=== PATIENT | female | born 1985 | race African-American/Black ===

== ENCOUNTER 2019-02-24 22:55 | Emergency (ER) | payer OTHER ==
[~2019-02-24] VITALS: Ht 165.1 cm; Wt 122.5 kg
[2019-02-24 23:30] LABS: BILIRUBIN,URINE NEGATIVE (NEG); CLARITY,URINE CLEAR; COLOR,URINE YELLOW; NITRITE,URINE NEGATIVE (NEG); PH,URINE 7.5; PROTEIN,URINE NEGATIVE (NEG-TRACE)
--- NOTE | 2019-02-24 23:34 | PHYS DOC ---
Adult General Chief Complaint Chief Complaint: ABDOMINAL PAIN IN HPI HPI Patient is a 33 year old -Polish, G3, P1, Ab 1 mated 9 weeks' gestation female who presents with right lower quadrant pain/tenderness starting earlier today. Patient is intermittent lasting 10-15 minutes a time with multiple episodes throughout the day. Patient is worse with palpation and movement and is not relieved with rest or position change. No medications or therapy sticking prior to ED arrival. Patient denies dizziness lightheadedness, chest pain palpitations, flank pain, urinary frequency urgency burning, vaginal bleeding and discharge. No fever chills sweats, nausea vomiting or diarrhea. No vomiting or diarrhea. States she had similar pain during most isn't due to uterine fibroids. Patient has yet to establish with an FIRE BATTALION CHIEF.[] Review of Systems Review of Systems View symptoms as per history of present illness. All other review symptoms are negative All other systems were reviewed and found to be within normal limits, except as documented in this note. Current Medications Current Medications Current Medications Medications (Trade) Dose Ordered Sig/Kishan Start Time Stop Time Status Last Admin Dose Admin Metronidazole (Flagyl) 500 mg 1X ONCE 02/25/19 01:30 02/25/19 01:31 Allergies Allergies Allergies Coded Allergies Type Severity Reaction Last Updated Verified No Known Drug Allergies 02/24/19 No Physical Exam Physical Exam Constitutional: Well developed, well nourished, no acute distress, non-toxic appearance. [] HENT: Normocephalic, atraumatic, bilateral external ears normal, oropharynx moist, nose normal. [] Eyes: PERRLA, EOMI, conjunctiva normal. [] Neck: Normal range of motion, no tenderness. [] Cardiovascular:Heart rate regular rhythm, no murmur [] Lungs & Thorax: Bilateral breath sounds clear to auscultation [] Abdomen: Bowel sounds normal, soft, no tenderness, no masses, no pulsatile masses. [] Pelvic: Pelvic exam declined by patient. [] Back: No tenderness, no CVA tenderness. [] Extremities: No tenderness, no cyanosis, no edema. [] Neurologic: Alert and oriented X 3, normal motor function, normal sensory function, no focal deficits noted. [] Psychologic: Affect normal, judgement normal, mood normal. [] Current Patient Data Vital Signs Vital Signs Date Time Temp Pulse Resp B/P (MAP) Pulse Ox O2 Delivery O2 Flow Rate FiO2 02/24/19 23:13 97.9 89 16 153/88 (109) 97 Room Air 97.9 Lab Values Laboratory Tests Test 02/24/19 23:00 02/24/19 23:23 02/24/19 23:35 Urine Color Yellow Urine Clarity Clear Urine pH 7.5 Urine Specific [place] 1.025 Urine Protein Negative mg/dL (NEG-TRACE) Urine Glucose (UA) Negative mg/dL (NEG) Urine Ketones (Stick) Negative mg/dL (NEG) Urine Blood Negative (NEG) Urine Nitrite Negative (NEG) Urine Bilirubin Negative (NEG) Urine Urobilinogen Dipstick 1.0 mg/dL (0.2 mg/dL) Urine Leukocyte Esterase Negative (NEG) Urine RBC 0 /HPF (0-2) Urine WBC Occ /HPF (0-4) Urine Squamous Epithelial Cells Occ /LPF Urine Bacteria 0 /HPF (0-FEW) Urine Mucus Mod /LPF POC Urine HCG, Qualitative Hcg positive (Negative) White Blood Count 7.3 x10^3/uL (4.0-11.0) Red Blood Count 4.09 x10^6/uL (3.50-5.40) Hemoglobin 11.1 g/dL (12.0-15.5) L Hematocrit 33.9 % (36.0-47.0) L Mean Corpuscular Volume 83 fL (79-100) Mean Corpuscular Hemoglobin 27 pg (25-35) Mean Corpuscular Hemoglobin Concent 33 g/dL (31-37) Red Cell Distribution Width 16.3 % (11.5-14.5) H Platelet Count 266 x10^3/uL (140-400) Neutrophils (%) (Auto) 63 % (31-73) Lymphocytes (%) (Auto) 29 % (24-48) Monocytes (%) (Auto) 6 % (0-9) Eosinophils (%) (Auto) 2 % (0-3) Basophils (%) (Auto) 0 % (0-3) Neutrophils # (Auto) 4.6 x10^3/uL (1.8-7.7) Lymphocytes # (Auto) 2.1 x10^3/uL (1.0-4.8) Monocytes # (Auto) 0.4 x10^3/uL (0.0-1.1) Eosinophils # (Auto) 0.1 x10^3/uL (0.0-0.7) Basophils # (Auto) 0.0 x10^3/uL (0.0-0.2) Maternal Serum HCG Beta Subunit 63106 mIU/mL (0-5) H Sodium Level 138 mmol/L (136-145) Potassium Level 3.9 mmol/L (3.5-5.1) Chloride Level 103 mmol/L (98-107) Carbon Dioxide Level 29 mmol/L (21-32) Anion Gap 6 (6-14) Blood Urea Nitrogen 9 mg/dL (7-20) Creatinine 0.8 mg/dL (0.6-1.0) Estimated GFR (Cockcroft-Gault) 100.0 Glucose Level 107 mg/dL (70-99) H Calcium Level 9.2 mg/dL (8.5-10.1) Laboratory Tests 02/24/19 23:35 Laboratory Tests 02/24/19 23:35 Microbiology 02/24/19 Wet Prep - Final, Complete EKG EKG [] Radiology/Procedures Radiology/Procedures [OB ultrasound: Viable 6 week 1 day IUP. Large uterine fibroids visualized. Appendix and ovaries are not seen.] Course & Med Decision Making Course & Med Decision Making Pertinent Labs and Imaging studies reviewed. (See chart for details) [Acute right-sided pelvic pain in early with viable IUP. Patient declines pelvic exam agrees to self swab. Bacterial vaginosis +. Concern for lorri n secondary to possible appendicitis versus bacterial vaginosis versus uterine fibroids vs ovarain torsion. 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 Patient declines admission. MRI unavailable in the ED. Patient does not want CT due radiation exposure. She states she has had similar pain during the most recent and prefers to follow-up her FIRE BATTALION CHIEF on Wednesday as scheduled. Patient verbalizes understanding that she is risk of miscarriage surgical emergency for untreated appendicitis. She agrees to return to the emergency department should she change her mind regarding additional testing and hospital admission. Patient discharged to home at her request. ] Dragon Disclaimer Dragon Disclaimer This electronic medical record was generated, in whole or in part, using a voice recognition dictation system. Departure Departure Impression: Primary Impression: Pelvic pain affecting in first trimester, antepartum Additional Impression: Bacterial vaginosis in Disposition: HOME, SELF-CARE Condition: GUARDED Referrals: NO PCP (PCP) Patient Instructions: Abdominal Pain During , [id number], Bacterial Vaginosis, [id number] Additional Instructions: You were evaluated in the emergency department for lower pelvic pain. Lab and imaging studies were performed. A viable uterine 6 weeks, 1 day is present on ultrasound. Large uterine fibroids were also noted to be present. Genital swabs feel bacterial vaginosis and overgrowth of normal bacteria. The appendix was not clearly visualized and has not been ruled out. Undiagnosed appendicitis places you at high risk for miscarriage and potential surgical emergencies. If you change your mind regarding further evaluation of appendicitis, return to the ED. Otherwise, take newly prescribed medication follow-up with your OB on Wednesday as scheduled. Take Flagyl as directed for treatment of bacterila and Tylenol for pain Scripts Metronidazole (FLAGYL) 250 Mg Tablet 1 TAB PO BID, #14 TAB Prov: MAGED GARCIA DO 02/25/19 Problem Qualifiers MAGED GARCIA DO Feb 24, 2019 23:34
[2019-02-24 23:36] LABS: BACTERIA,URINE 0 /HPF (0-FEW); RBC,URINE 0 /HPF (0-2); SQUAMOUS EPITHELIAL CELL,UR OCC /LPF; WBC,URINE OCC /HPF (0-4)
[2019-02-24 23:47] LABS: BASO % 0 % (0-3); EOS # 0.1 x10^3/uL (0.0-0.7); EOS % 2 % (0-3); HEMATOCRIT 33.9 % (36.0-47.0); HEMOGLOBIN 11.1 g/dL (12.0-15.5); LYMPH # 2.1 x10^3/uL (1.0-4.8); LYMPH % 29 % (24-48); MEAN CORPUSCULAR HEMOGLOBIN 27 pg (25-35); MEAN CORPUSCULAR HGB CONC 33 g/dL (31-37); MEAN CORPUSCULAR VOLUME 83 fL (79-100); MONO # 0.4 x10^3/uL (0.0-1.1); MONO % 6 % (0-9); NEUT # 4.6 x10^3/uL (1.8-7.7); NEUT % 63 % (31-73); PLATELET COUNT 266 x10^3/uL (140-400); RED BLOOD COUNT 4.09 x10^6/uL (3.50-5.40); RED CELL DISTRIBUTION WIDTH 16.3 % (11.5-14.5); WHITE BLOOD COUNT 7.3 x10^3/uL (4.0-11.0)
[2019-02-25 00:01] LABS: CALCIUM 9.2 mg/dL (8.5-10.1); CREATININE 0.8 mg/dL (0.6-1.0); POTASSIUM 3.9 mmol/L (3.5-5.1)
--- NOTE | 2019-02-25 01:01 | RAD ---
CLINICAL HISTORY: Right-sided pelvic pain COMPARISON: None available. TECHNIQUE: transabdominal and endovaginal sonography was performed FINDINGS: An intrauterine gestational sac is present. An embryo is identified .Cardiac activity is visualized and documented at a rate of 115 beats per minute. There is no subchorionic fluid collection. Based on a crown rump length averaging 0.44 cm, the estimated gestational age is 6 weeks, 1 days. Estimated date of delivery is 10/20/2019. Ovaries are not visualized. Numerous fibroids are seen within the uterus resulting in deformity of the uterus and limiting evaluation. There is small volume pelvic free fluid. Limited imaging of the right lower quadrant was performed. The appendix was not visualized. IMPRESSION: 1. Single live intrauterine gestation with mean sonographic age of 6 weeks, 1 days. The estimated date of delivery is 10/20/2019. 2. Ovaries are not seen. Uterine fibroids are noted. Electronically signed by: Mukul Parra MD (02/25/2019 12:58 AM) [facility]
[2019-02-25] MEDS ORDERED: METR250T PO (01:13)
[2019-02-25 01:25] VITALS: BP 142/65
[2019-02-25] MEDS ORDERED: metroNIDAZOLE 500 MG TABLET PO ONE (01:30)
[2019-02-25] MEDS ORDERED: ACETAMINOPHEN 325 MG TABLET. PO ONE (01:45)
[2019-02-28 23:08] LABS: GC PROBE Negative (Negative)
== END 2019-02-25 01:29 | disposition home or self-care (01) ==
LOC: ER 22:55
DX: O23.591 Infection of other part of genital tract in pregnancy, first trimester (principal); B96.89 Other specified bacterial agents as the cause of diseases classified elsewhere; Z3A.01 Less than 8 weeks gestation of pregnancy
CPT/HCPCS: 36415; 76801; 76817; 80048; 81001; 81025; 84702; 85025; 86900; 86901; 87491; 87591; 99285; Q0111

== ENCOUNTER 2020-08-07 20:24 | Emergency (ER) | payer OTHER ==
[~2020-08-07] VITALS: Ht 165.1 cm; Wt 126.4 kg
[~2020-08-07 20:24] MED LIST: METR250T PO; ONDA4TAB12 PO
[2020-08-07 20:53] LABS: BILIRUBIN,URINE NEGATIVE (NEG); CLARITY,URINE CLEAR; COLOR,URINE YELLOW; NITRITE,URINE NEGATIVE (NEG); PH,URINE 6.5 (<5.0-8.0); PROTEIN,URINE 30 mg/dL (NEG-TRACE)
[2020-08-07 21:02] LABS: BACTERIA,URINE MODERATE /HPF (0-FEW)
[2020-08-07 21:03] LABS: WBC,URINE RARE /HPF (0-4)
[2020-08-07 22:15] LABS: BASO % 0 % (0-3); EOS # 0.3 x10^3/uL (0.0-0.7); EOS % 4 % (0-3); HEMATOCRIT 33.2 % (36.0-47.0); LYMPH # 2.4 x10^3/uL (1.0-4.8); LYMPH % 30 % (24-48); MEAN CORPUSCULAR HEMOGLOBIN 28 pg (25-35); MEAN CORPUSCULAR HGB CONC 33 g/dL (31-37); MEAN CORPUSCULAR VOLUME 84 fL (79-100); MONO # 0.5 x10^3/uL (0.0-1.1); MONO % 6 % (0-9); NEUT # 4.7 x10^3/uL (1.8-7.7); NEUT % 60 % (31-73); PLATELET COUNT 350 x10^3/uL (140-400); RED BLOOD COUNT 3.98 x10^6/uL (3.50-5.40); RED CELL DISTRIBUTION WIDTH 16.2 % (11.5-14.5); WHITE BLOOD COUNT 7.9 x10^3/uL (4.0-11.0)
--- NOTE | 2020-08-07 22:16 | RAD ---
EXAMINATION: US OB <14 WKS +TV (PELVIC ULTRASOUND) HISTORY: Vaginal bleeding in . Positive home test, no hCG at this time TECHNIQUE: Sonography of the pelvis was performed by transvaginal and transabdominal (limited) techni ques. COMPARISON: None FINDINGS: Uterus: 13.8 x 7.9 x 6.8 cm with no visualized intrauterine gestational sac. - Myometrium: Multiple fibroids measuring up to 5.1 cm. - Endometrium: 5 mm with minimal fluid in the endometrial canal, likely blood products given reported history - Cervix: Normal Right ovary: 3.0 x 2.3 x 2.0 cm - Normal sonographic appearance. Arterial and venous flow is present throughout the ovary on color Do ppler imaging with normal spectral waveforms. Left ovary: Not visualized secondary to prominent overlying bowel gas. Pelvic free fluid: Small free fluid, likely physiologic. IMPRESSION: Enlarged myomatous uterus with no visualized intrauterine gestational sac. Nonvisualized left ovary. Electronically signed by: Adonis Mosquera DO (08/07/2020 10:14 PM) [facility]
--- NOTE | 2020-08-07 22:59 | PHYS DOC ---
Past Medical History Past Medical History: Asthma, Hypertension, Other Additional Past Medical Histor: "LOW IRON", UTERINE FIBROIDS Past Surgical History: , Other Additional Past Surgical Histo: DNC Smoking Status: Never Smoker Alcohol Use: None Drug Use: None General Adult EDM: Chief Complaint: VAGINAL BLEEDING HPI: HPI: Patient is a 35 year old female with history of hypertension 4 para 2 with 1 miscarriage who presents to the ED today complaining of vaginal bleeding in that began on July 25, 2020. Patient states she did a home test which was positive. She states she does not want to keep this but would like to be worked up to see if she is having a miscarriage or not. Denies any abdominal pain. Denies any back pain. Review of Systems: Review of Systems: Constitutional: Denies fever or chills. [] Eyes: Denies change in visual acuity. [] HENT: Denies nasal congestion or sore throat. [] Respiratory: Denies cough or shortness of breath. [] Cardiovascular: Denies chest pain or edema. [] GI: Reports vaginal bleeding in denies abdominal pain, nausea, vomiting, bloody stools or diarrhea. [] : Denies dysuria. [] Musculoskeletal: Denies back pain or joint pain. [] Integument: Denies rash. [] Neurologic: Denies headache, focal weakness or sensory changes. [] Psychiatric: Denies depression or anxiety. [] Heart Score: C/O Chest Pain: N/A Risk Factors: Risk Factors: DM, Current or recent (<one month) smoker, HTN, HLP, family history of CAD, obesity. Risk Scores: Score 0 - 3: 2.5% MACE over next 6 weeks - Discharge Home Score 4 - 6: 20.3% MACE over next 6 weeks - Admit for Clinical Observation Score 7 - 10: 72.7% MACE over next 6 weeks - Early Invasive Strategies Allergies: Allergies: Allergies Coded Allergies Type Severity Reaction Last Updated Verified No Known Drug Allergies 02/24/19 No Physical Exam: PE: Constitutional: Well developed, well nourished, no acute distress, non-toxic appearance. [] HENT: Normocephalic, atraumatic, bilateral external ears normal, oropharynx moist, no oral exudates, nose normal. [] Eyes: PERRLA, EOMI, conjunctiva normal, no discharge. [] Neck: Normal range of motion, no tenderness, supple, no stridor. [] Cardiovascular:Heart rate regular rhythm, no murmur [] Lungs & Thorax: Bilateral breath sounds clear to auscultation [] Abdomen: Bowel sounds normal, soft, no tenderness, no masses, no pulsatile masses. [] Patient refused pelvic exam Skin: Warm, dry, no erythema, no rash. [] Back: No tenderness, no CVA tenderness. [] Extremities: No tenderness, no cyanosis, no clubbing, ROM intact, no edema. [] Neurologic: Alert and oriented X 3, normal motor function, normal sensory function, no focal deficits noted. [] Psychologic: Affect normal, judgement normal, mood normal. [] Current Patient Data: Labs: Laboratory Tests Test 08/07/20 20:30 08/07/20 20:44 08/07/20 22:05 Urine Collection Type Unknown Urine Color Yellow Urine Clarity Clear Urine pH 6.5 (<5.0-8.0) Urine Specific [place] >=1.030 (1.000-1.030) Urine Protein 30 mg/dL (NEG-TRACE) Urine Glucose (UA) Negative mg/dL (NEG) Urine Ketones (Stick) Trace mg/dL (NEG) Urine Blood Large (NEG) Urine Nitrite Negative (NEG) Urine Bilirubin Negative (NEG) Urine Urobilinogen Dipstick 1.0 mg/dL (0.2 mg/dL) Urine Leukocyte Esterase Negative (NEG) Urine RBC 6-10 /HPF (0-2) Urine WBC Rare /HPF (0-4) Urine Squamous Epithelial Cells Mod /LPF Urine Bacteria Moderate /HPF (0-FEW) Urine Mucus Marked /LPF POC Urine HCG, Qualitative Hcg positive (Negative) White Blood Count 7.9 x10^3/uL (4.0-11.0) Red Blood Count 3.98 x10^6/uL (3.50-5.40) Hemoglobin 11.0 g/dL (12.0-15.5) L Hematocrit 33.2 % (36.0-47.0) L Mean Corpuscular Volume 84 fL (79-100) Mean Corpuscular Hemoglobin 28 pg (25-35) Mean Corpuscular Hemoglobin Concent 33 g/dL (31-37) Red Cell Distribution Width 16.2 % (11.5-14.5) H Platelet Count 350 x10^3/uL (140-400) Neutrophils (%) (Auto) 60 % (31-73) Lymphocytes (%) (Auto) 30 % (24-48) Monocytes (%) (Auto) 6 % (0-9) Eosinophils (%) (Auto) 4 % (0-3) H Basophils (%) (Auto) 0 % (0-3) Neutrophils # (Auto) 4.7 x10^3/uL (1.8-7.7) Lymphocytes # (Auto) 2.4 x10^3/uL (1.0-4.8) Monocytes # (Auto) 0.5 x10^3/uL (0.0-1.1) Eosinophils # (Auto) 0.3 x10^3/uL (0.0-0.7) Basophils # (Auto) 0.0 x10^3/uL (0.0-0.2) Maternal Serum HCG Beta Subunit 446 mIU/mL (0-5) H Laboratory Tests 08/07/20 22:05 Vital Signs: Vital Signs Date Time Temp Pulse Resp B/P (MAP) Pulse Ox O2 Delivery O2 Flow Rate FiO2 08/07/20 21:29 98.0 84 16 168/92 (117) 99 Room Air 98.0 EKG: EKG: [] Radiology/Procedures: Radiology/Procedures: []PROCEDURE: OB <14 WKS W/TV EXAMINATION: US OB <14 WKS +TV (PELVIC ULTRASOUND) HISTORY: Vaginal bleeding in . Positive home test, no hCG at this time TECHNIQUE: Sonography of the pelvis was performed by transvaginal and transabdominal (limited) techniques. COMPARISON: None FINDINGS: Uterus: 13.8 x 7.9 x 6.8 cm with no visualized intrauterine gestational sac. - Myometrium: Multiple fibroids measuring up to 5.1 cm. - Endometrium: 5 mm with minimal fluid in the endometrial canal, likely blood products given reported history - Cervix: Normal Right ovary: 3.0 x 2.3 x 2.0 cm - Normal sonographic appearance. Arterial and venous flow is present throughout the ovary on color Doppler imaging with normal spectral waveforms. Left ovary: Not visualized secondary to prominent overlying bowel gas. Pelvic free fluid: Small free fluid, likely physiologic. IMPRESSION: Enlarged myomatous uterus with no visualized intrauterine gestational sac. Nonvisualized left ovary. Electronically signed by: Adonis Quiles DO (08/07/2020 10:14 PM) [facility] DICTATED and SIGNED BY: ADONIS QUILES DO DATE: 08/07/20 [id number] Course & Med Decision Making: Course & Med Decision Making Pertinent Labs and Imaging studies reviewed. (See chart for details) This is a 35-year-old female patient 4 para 2 with 1 miscarriage presenting today complaining of vaginal bleeding in that began on July 25, 2020. Patient reports she has no desire to keep this but would like to be worked up to see if she is having a miscarriage. Positive urine hCG, beta-hCG 446. CBC with no acute findings, OB ultrasound unable to find an IUP, noted for fibroids in her uterus. Patient has an ENTRY LEVEL JAVA DEVELOPER and, I requested she follows up and they can discuss options regarding her She is blood group O Negative, RhoGam was ordered Dragon Disclaimer: Jacobo Disclaimer: This electronic medical record was generated, in whole or in part, using a voice recognition dictation system. Departure Departure Impression: Primary Impression: Threatened miscarriage Additional Impressions: Type O blood, Rh negative Encounter for prophylactic administration of RhoGAM Fibroids Disposition: 01 HOME / SELF CARE / HOMELESS Condition: STABLE Referrals: NO PCP (PCP) Follow-up with your ENTRY LEVEL JAVA DEVELOPER as soon as possible Patient Instructions: Threatened Miscarriage, [id number] Additional Instructions: You were evaluated in the emergency room, your urine test as well as blood test are positive with Beta hcg of 446. Ultrasound was not able to find an intrauterine , this could be an early , ectopic or miscarriage. Please follow-up with your ENTRY LEVEL JAVA DEVELOPER for options regarding the . We are not able to do or prescribe medicines in the ED AUNG MARTINS INSURANCE COORDINATOR August 07, 2020 22:59
[2020-08-07 23:55] VITALS: BP 161/88
[2020-08-08 00:08] VITALS: BP 163/83
[2020-08-08 00:23] VITALS: BP 163/81
== END 2020-08-08 00:29 | disposition home or self-care (01) ==
LOC: ER 20:24
DX: O46.91 Antepartum hemorrhage, unspecified, first trimester (principal); O99.511 Diseases of the respiratory system complicating pregnancy, first trimester; J45.909 Unspecified asthma, uncomplicated; O16.1 Unspecified maternal hypertension, first trimester; Z3A.01 Less than 8 weeks gestation of pregnancy
CPT/HCPCS: 36415; 36430; 76801; 76817; 81001; 81025; 84702; 85025; 86850; 86900; 86901; 87086; 99285-25